=== PATIENT | female | born 1930 | race Caucasian/White ===

== ENCOUNTER 2017-03-19 17:15 | Emergency (ER) | payer OTHER, MEDICAID ==
[2017-03-19 17:57] VITALS: PULSE 67; RESP 20
--- NOTE | 2017-03-19 19:07 | C.PDOC ---
History Of Present Illness 86 year old female with a gross vision loss for at least the past week was seen by upper stitcher today. She was referred to the retinal specialist for evaluation of retinal vein occlusion. Patient is accompanied by her daughter, who reports patient was seen in [place] on 03/13 for "reading glasses" by a specialist who advised her additional follow up for vision loss in the right eye. Patient had an appointment with Dr. Santana today, patient had her pupils dilated and she was diagnosed with central retinal vein occlusion. Daughter was advised to follow up with a retinal specialist but was unable to be seen so she was sent here for imaging and further work up. Time Seen by Provider: 03/19/17 18:46 Chief Complaint (Nursing): Eye Problem History Per: Patient, Family History/Exam Limitations: no limitations Onset/Duration Of Symptoms: Persistent Current Symptoms Are (Timing): Still Present Injury To Eye?: No Wears Contact Lens?: No Associated Symptoms: Decreased Vision Recent travel outside of the [place]: No Additional History Per: Patient Past Medical History Reviewed: Historical Data, Nursing Documentation, Vital Signs Vital Signs: Last Vital Signs Temp 98.2 F 03/19/17 17:51 Pulse 67 03/19/17 17:51 Resp 20 03/19/17 17:51 BP 174/92 H 03/19/17 17:51 Pulse Ox 98 03/19/17 19:16 - Medical History PMH: HTN Surgical History: No Surg Hx Family History: States: Unknown Family Hx - Social History Hx Alcohol Use: No Hx Substance Use: No Review Of Systems Constitutional: Negative for: Fever, Chills Eyes: Positive for: Vision Change Cardiovascular: Negative for: Chest Pain, Palpitations Respiratory: Negative for: Cough, Shortness of Breath Gastrointestinal: Negative for: Nausea, Vomiting, Abdominal Pain Musculoskeletal: Negative for: Neck Pain Skin: Negative for: Rash Neurological: Negative for: Weakness, Numbness Physical Exam - Physical Exam Appears: Non-toxic, No Acute Distress Skin: Normal Color, Warm, Dry Head: Atraumatic, Normacephalic Eye(s): bilateral: Abnormal Pupil (Pupil dilated ), right: Other (right retina grossly engorged vessels and retinal hemorrhages) Nose: No Discharge Oral Mucosa: Moist Neck: Normal ROM, Supple Chest: Symmetrical Cardiovascular: Rhythm Regular, Murmur Respiratory: Normal Breath Sounds, No Rales, No Rhonchi, No Wheezing Gastrointestinal/Abdominal: Soft, No Tenderness Extremity: Normal ROM, No Pedal Edema, No Calf Tenderness, No Swelling Neurological/Psych: Oriented x3, Normal Speech, Normal Cognition Gait: Steady ED Course And Treatment - Laboratory Results Result Diagrams: 03/19/17 19:32 03/19/17 19:32 Lab Interpretation: No Acute Changes O2 Sat by Pulse Oximetry: 98 (On RA) Pulse Ox Interpretation: Normal - Physician Consult Information Outcome Of Conversation: Attempts to reach Dr Santana unsuccessful. Case discussed with Dr Nicholson who advises follow up in the office tomorrow with the retinal specialist. Medical Decision Making Medical Decision Making: Plan: * Blood work ordered Disposition Counseled Patient/Family Regarding: Studies Performed, Diagnosis, Need For Followup - Disposition Disposition: HOME/ ROUTINE Disposition Time: 21:48 Condition: STABLE Additional Instructions: Follow up with Dr Santana and the retinal specialist tomorrow. Instructions: Retinal Hemorrhage (ED) Forms: [facility] ([place]) - Clinical Impression Clinical Impression: CRVO (central retinal vein occlusion) - Scribe Statement The provider has reviewed the documentation as recorded by the Scribe Jadiel Vides All medical record entries made by the Scribe were at my direction and personally dictated by me. I have reviewed the chart and agree that the record accurately reflects my personal performance of the history, physical exam, medical decision making, and the department course for this patient. I have also personally directed, reviewed, and agree with the discharge instructions and disposition.
[2017-03-19 19:37] LABS: BASO # 0.1 K/uL (0.0-0.2); BASO % 0.9 % (0.0-2.0); EOS # 0.1 K/uL (0.0-0.7); EOS % 2.3 % (0.0-4.0); HEMATOCRIT 30.3 % (34.0-47.0); LYMPH # 2.5 K/uL (1.0-4.3); LYMPH % 41.7 % (20.0-40.0); MEAN CELL VOLUME 62.8 fL (81.0-99.0); MEAN CORPUSCULAR HEMOGLOBIN 19.7 pg (27.0-31.0); MEAN CORPUSCULAR HGB CONC 31.3 g/dL (33.0-37.0); MEAN PLATELET VOLUME 9.1 fL (7.2-11.7); MONO # 0.3 K/uL (0.0-0.8); MONO % 5.1 % (0.0-10.0); RED CELL DISTRIBUTION WIDTH 15.8 % (11.5-14.5); WHITE BLOOD COUNT 5.9 K/uL (4.8-10.8)
[2017-03-19 19:42] LABS: INR 1.1
[2017-03-19 19:46] LABS: ALB/GLOB RATIO 1.2 (1.0-2.1); BILIRUBIN,TOTAL 0.5 mg/dL (0.2-1.3); CALCIUM 8.2 mg/dl (8.6-10.4); TOTAL PROTEIN 7.3 g/dL (6.3-8.3)
[2017-03-19 22:07] VITALS: TEMP 97.6; O2SAT 97
[2017-03-19 23:09] VITALS: BP 169/73
== END 2017-03-19 23:10 | disposition home or self-care (01) ==
LOC: C.ER 17:15
DX: H34.8112 Central retinal vein occlusion, right eye, stable (principal)